=== PATIENT | female | born 2000 ===

== ENCOUNTER 2021-01-09 10:39 | Outpatient (CLI) | payer OTHER | END 2021-01-09 12:27 | disposition home or self-care (01) | LOC: PRENATAL 10:39 | PROVIDERS: ATTEND Obstetrics & Gynecology Maternal & Fetal Medicine | DX: O35.0XX1 Maternal care for (suspected) central nervous system malformation in fetus, fetus 1 (principal); O35.3XX1 Maternal care for (suspected) damage to fetus from viral disease in mother, fetus 1; O98.512 Other viral diseases complicating pregnancy, second trimester; O24.410 Gestational diabetes mellitus in pregnancy, diet controlled; Z36.89 Encounter for other specified antenatal screening; Z3A.22 22 weeks gestation of pregnancy ==

== ENCOUNTER 2021-02-23 10:16 | Outpatient (CLI) | payer OTHER ==
[~2021-02-23 10:16] MED LIST: GLUCOSE TEST S1 EACH {1, null}; LANCETS {1, null}; METFORMIN HCL500 M3 PO
== END 2021-02-23 11:40 | disposition home or self-care (01) ==
LOC: PRENATAL 10:16
PROVIDERS: ATTEND Obstetrics & Gynecology Maternal & Fetal Medicine
DX: O26.843 Uterine size-date discrepancy, third trimester (principal); O24.410 Gestational diabetes mellitus in pregnancy, diet controlled; Z36.89 Encounter for other specified antenatal screening; Z3A.29 29 weeks gestation of pregnancy

== ENCOUNTER 2021-03-19 09:29 | Outpatient (CLI) | payer OTHER | END 2021-03-19 10:49 | disposition home or self-care (01) | LOC: PRENATAL 09:29 | PROVIDERS: ATTEND Obstetrics & Gynecology Maternal & Fetal Medicine | DX: O26.843 Uterine size-date discrepancy, third trimester (principal); O24.410 Gestational diabetes mellitus in pregnancy, diet controlled; Z36.89 Encounter for other specified antenatal screening; Z3A.32 32 weeks gestation of pregnancy ==

== ENCOUNTER 2021-04-18 11:21 | Outpatient (CLI) | payer OTHER | END 2021-04-18 12:15 | disposition home or self-care (01) | LOC: PRENATAL 11:21 | PROVIDERS: ATTEND Obstetrics & Gynecology Maternal & Fetal Medicine | DX: O36.8199 Decreased fetal movements, unspecified trimester, other fetus (principal); O35.0XX0 Maternal care for (suspected) central nervous system malformation in fetus, not applicable or unspecified; O24.419 Gestational diabetes mellitus in pregnancy, unspecified control ==